=== PATIENT | male | born 1975 | race Caucasian/White ===

== ENCOUNTER 2019-09-28 12:53 | Observation (INO) ==
[2019-09-28 13:29] LABS: Hemoglobin 11.3 gm/dL (13.5-18.0); Mean Cell Volume 81.8 fl (78-100); Mean Corpuscular Hemoglobin 26.4 pg (27-31); Mean Corpuscular Hgb Conc 32.3 g/dl (32-36); Mean Platelet Volume 10.5 fl (8-11.3); Neutrophil % 68.4 % (42-75.0); Platelet Count 229 K/mm3 (150-450); Red Blood Count 4.28 M/mm3 (4.7-6.0); Red Cell Distribution Width 14.3 % (11.5-14.0); White Blood Count 8.8 K/mm3 (4.0-10.5)
[2019-09-28] MEDS ORDERED: FUROSEMIDE 10 MG/ML VIAL IV ONE (13:54)
[2019-09-28 13:55] LABS: Troponin I 0.028 ng/mL (0.00-0.10)
[2019-09-28 13:56] LABS: Albumin * 2.9 gm/dl (3.4-5.0); Anion Gap 13.6 mmol/L (6.8-13.8); BUN/Creatinine Ratio 11.1 (9.0-21.6); Bilirubin, Total 0.4 mg/dL (0.0-1.1); Ca. Corrected For Albumin 9.4 mg/dL (8.4-10.2); Calcium * 8.8 mg/dL (7.9-10.9); Potassium 4.6 mmol/L (3.4-4.6); Total Protein 5.9 gm/dL (6.2-8.2)
--- NOTE | 2019-09-28 14:55 | ERNOTE ---
Dyspnea - Date Date of Service: 09/28/19 - General Presenting Symptoms: shortness of breath, difficulty of breathing Time Seen by Provider: 09/28/19 13:11 Source: patient, family Exam Limitations: no limitations - Immun/Allergies/Home Medications Immunizations: IMMUNIZATION HX Immunizations Up to Date Yes History of Influenza Vaccine No Hx Pneumococcal Vaccination No Allergies/Adverse Reactions: Allergies No Known Allergies Allergy (Verified 09/28/19 13:04) Home Medications: HOME MEDICATIONS Clindamycin HCl [Cleocin HCl] 300 mg PO QID 09/28/19 [Last Taken Unknown] - History of Present Illness Narrative: patient presents to ed with c/o dyspnea for 7-10 days denies fever or cough, past hx of bilateral pneumothorax secondary to mrmsa with chest tube insertion Severity: moderate Initiating event: Reports: none Frequency of episodes: Reports: occassional episodes Modifying Factors - (Improves): Reports: nothing Modifying Factors (Worsens): Reports: nothing Associated Symptoms-Dyspnea: Reports: dizziness, lightheadedness, weakness Review of Systems - Review of Systems Constitutional: Present: See HPI, weakness, fatigue, malaise EYE: Present: no symptoms reported ENT: Present: no symptoms reported Respiratory: Present: See HPI, shortness of breath, orthopnea Cardiology: Present: no symptoms reported Gastrointestinal/Abdominal: Present: no symptoms reported Genitourinary: Present: no symptoms reported Musculoskeletal: Present: no symptoms reported Skin: Present: no symptoms reported Neurological: Present: no symptoms reported Endocrine: Present: no symptoms reported Hematologic/Lymphatic: Present: no symptoms reported Psych: Present: no symptoms reported All Other Systems: All systems neg except as marked Medical History (Last Updated 09/28/19 @ 14:15 by Shazia Chong RN) Diabetes MRSA infection Pneumothorax Surgical History: Surgical History (Last Updated 09/28/19 @ 13:05 by Shazia Chong RN) No pertinent past surgical history Social History: (Last Updated 09/28/19 @ 13:06 by Shazia Chong RN) Tobacco: Smoking Status: Former smoker Smoking Start Date: 02/20/19 Physical Exam - Physical Exam General Appearance: Present: moderate distress, anxious Head Exam: Present: normal inspection, no evidence of injury Eye Exam: Normal inspection: bilateral, PERRL: bilateral, EOMI: bilateral Ears, Nose, Throat: Present: normal ENT inspection, normal pharynx Neck: Present: normal inspection, nontender Respiratory: Present: respiratory distress Cardiovascular/Chest: Present: tachycardia, gallop/S3 Gastrointestinal/Abdominal: Present: normal bowel sounds, nontender, nondistended, soft, no organomegaly Back Exam: Present: normal inspection, normal range of motion, no CVA tenderness, no vertebral tenderness Extremity Exam: Present: normal inspection, non-tender, normal range of motion, no edema Neurological Exam: Present: alert, oriented, normal mood/affect, no motor /sensory deficits Skin Exam: Present: normal color, warm/dry Lymphatic Exam: Present: no adenopathy Progress - Date and Time Seen: Date and Time: 09/28/19 16:48 patient improved, discussed case with dr chou, to admit to observation - Results and Orders Patient's Lab Results:: I have reviewed the patient's lab results. - Vital Signs Patient's Vital Signs:: I have reviewed the patient's vital signs. Vital Signs: Vital Signs 09/28/19 12:58 09/28/19 13:07 09/28/19 13:08 Temperature 36.9 C Pulse Rate 110 H 103 H 103 H Respiratory Rate 42 H 47 H Blood Pressure 144/92 H 136/87 O2 Sat by Pulse Oximetry 89 L 94 09/28/19 14:01 09/28/19 14:02 09/28/19 14:28 Temperature Pulse Rate 100 100 104 H Respiratory Rate 31 H 28 H Blood Pressure 130/91 H 130/91 H 99/76 O2 Sat by Pulse Oximetry 95 96 - EKG EKG #1 EKG: supraventricular tachycardia - X-Ray X-Ray #1 X-Ray: chest Interpretation: Discd w/ radiologist - chf - Progress/Reassessment Chief Complaint: Dyspnea Progress:: Improved - Transfer of Care Expected Disposition: Admit Plan - Plan Plan: to admit Departure Clinical Impression: CHF (congestive heart failure) - Departure Disposition: Short Term Hospital Inpatient Condition: Stable Instructions: Heart Failure, [id number]
--- NOTE | 2019-09-28 18:13 | HP ---
Chief Complaint - Chief Complaint Date of Service: 09/28/19 Time of Service: 16:45 Chief Complaint: dyspnea History of Present Illness: Patient reports one week of shortness of breath. He went to the ED in [place] around a week ago, and he did not feel like treatment was done. His SOB worsened, to the point he felt like he was hyperventilating today, and he came to our ED. The only symptom he reports currently is shortness of breath. Den ies chest pain, cough, lower extremity swelling, abdominal pain, urinary complaints. He reports a history of MRSA pneumonia last March, and he was [facility]. He also states he had renal failure at that time, and he declined dialysis. He reports also having diabetes, but is not on any chronic medications. He was diagnosed with a tooth abscess a week ago, and was started on clindamycin. In the ED, CT showed fluid overload or renal failure. ABGs unable to be obtained. WBC not elevated. Renal function is decreased, with a GFR of 37. He was given 60 mg IV lasix, and has had almost 2 L output. He states his breathing has improved from earlier today. He is currently using 2 L O2 via NC, and he is still tachypneic with respiratory rate around 30. Medical History (Last Reviewed 09/28/19 @ 17:36 by Aime Serra RN) Diabetes MRSA infection Pneumothorax Surgical History: Surgical History (Last Reviewed 09/28/19 @ 17:36 by Aime Serra RN) No pertinent past surgical history Social History: (Last Reviewed 09/28/19 @ 17:36 by Aime Serra RN) Tobacco: Smoking Status: Former smoker Smoking Start Date: 02/20/19 Review Of Systems (GEN) - Review of Systems Generalized/Overall Review: Absent: Fever Respiratory: Present: Shortness of Breath. Absent: Cough, Wheezing Cardiac: Absent: Chest Pain, Edema Abdominal: Absent: Vomiting Genitourinary: Present: No Symptoms Reported Musculoskeletal: Present: No Symptoms Reported Neurological: Present: No Symptoms Reported Immunizations: IMMUNIZATION HX Immunizations Up to Date Yes History of Influenza Vaccine No Hx Pneumococcal Vaccination No Allergies/Adverse Reactions: Allergies Allergy/AdvReac Type Severity Reaction Status Date / Time No Known Allergies Allergy Verified 09/28/19 17:36 Home Medications: HOME MEDICATIONS Clindamycin HCl [Cleocin HCl] 300 mg PO QID 09/28/19 [Last Taken Unknown] Exam - Exam Vital Signs: Vital Signs - Last Taken Temp 36.7 C 09/28/19 17:37 Pulse 98 09/28/19 18:03 Resp 25 H 09/28/19 17:37 BP 142/88 H 09/28/19 17:37 Pulse Ox 98 09/28/19 17:37 Constitutional: Present: Alert, Cooperative, No distress, Looks Older than stated age Respiratory: Present: lungs clear, normal breath sounds, no respiratory distress, other - tachypneic, using 2L O2 via NC Cardiovascular/Chest: Present: regular rate, rhythm - HR 100 Extremity: Absent: lower extremity edema Neurologic: Absent: normal mood/affect Eye contact: Present: cooperative Diagnostic Studies: Abnormal Lab Results 09/28/19 09/28/19 09/28/19 Range/Units 13:22 13:22 13:22 RBC 4.28 L (4.7-6.0) M/mm3 Hgb 11.3 L (13.5-18.0) gm/dL Hct 35.0 L (42.0-52.0) % MCH 26.4 L (27-31) pg RDW 14.3 H (11.5-14.0) % D-Dimer 0.58 H (0.19-0.49) ug/mL Creatinine 2.07 H (0.4-1.4) mg/dL Est GFR (Non-Af Amer) 37 L D (60-130) mL/min Random Glucose 208 H (70-110) mg/dL ALT 15 L (19-67) U/L B-Natriuretic Peptide 4404 H (5-140) pg/mL Total Protein 5.9 L (6.2-8.2) gm/dL Albumin 2.9 L (3.4-5.0) gm/dl Laboratory Results WBC 8.8 K/mm3 (4.0-10.5) 09/28/19 13:22 RBC 4.28 M/mm3 (4.7-6.0) L 09/28/19 13:22 Hgb 11.3 gm/dL (13.5-18.0) L 09/28/19 13:22 Hct 35.0 % (42.0-52.0) L 09/28/19 13:22 MCV 81.8 fl (78-100) 09/28/19 13:22 MCH 26.4 pg (27-31) L 09/28/19 13:22 MCHC 32.3 g/dl (32-36) 09/28/19 13:22 RDW 14.3 % (11.5-14.0) H 09/28/19 13:22 Plt Count 229 K/mm3 (150-450) 09/28/19 13:22 MPV 10.5 fl (8-11.3) 09/28/19 13:22 Immature Gran % (Auto) 0.30 % (0.001-0.429) 09/28/19 13:22 Immature Gran # (Auto) 0.03 K/mm3 (0.000-0.0310) 09/28/19 13:22 Neutrophils % 68.4 % (42-75.0) 09/28/19 13:22 Lymphocytes % 22.5 % (20-51) 09/28/19 13:22 Monocytes % 5.5 % (0.0-9) 09/28/19 13:22 Eosinophils % 2.3 % (0.0-3.0) 09/28/19 13:22 Basophils % 1.0 % (0.0-1.0) 09/28/19 13:22 Nucleated RBC % 0.0 k/mm3 (0-1) 09/28/19 13:22 Neutrophils # 6.0 K/mm3 (1.3-6.0) 09/28/19 13:22 Lymphocytes # 1.99 k/mm3 (1.5-3.5) 09/28/19 13:22 Monocytes # 0.5 k/mm3 (0.0-1.0) 09/28/19 13:22 Eosinophils # 0.2 k/mm3 (0.0-0.7) 09/28/19 13:22 Absolute Basophils 0.1 k/mm3 (0.0-0.1) 09/28/19 13:22 D-Dimer 0.58 ug/mL (0.19-0.49) H 09/28/19 13:22 Sodium 139 mmol/L (132-142) 09/28/19 13:22 Plasma Sodium 141 mmol/L (130-142) 09/28/19 13:22 Potassium 4.6 mmol/L (3.4-4.6) 09/28/19 13:22 Chloride 106 mmol/L (97-106) 09/28/19 13:22 Carbon Dioxide 24.0 mmol/L (24-32.6) 09/28/19 13:22 Anion Gap 13.6 mmol/L (6.8-13.8) 09/28/19 13:22 BUN 23 mg/dL (6-23) 09/28/19 13:22 Creatinine 2.07 mg/dL (0.4-1.4) H 09/28/19 13:22 Est GFR (Non-Af Amer) 37 mL/min (60-130) L D 09/28/19 13:22 BUN/Creatinine Ratio 11.1 (9.0-21.6) 09/28/19 13:22 Random Glucose 208 mg/dL (70-110) H 09/28/19 13:22 Calcium 8.8 mg/dL (7.9-10.9) 09/28/19 13:22 Calcium Adj for Albumin 9.4 mg/dL (8.4-10.2) 09/28/19 13:22 Total Bilirubin 0.4 mg/dL (0.0-1.1) 09/28/19 13:22 AST 13 U/L (0-48) 09/28/19 13:22 ALT 15 U/L (19-67) L 09/28/19 13:22 Alkaline Phosphatase 83 U/L (50-170) 09/28/19 13:22 Troponin I 0.028 ng/mL (0.00-0.10) 09/28/19 13:22 B-Natriuretic Peptide 4404 pg/mL (5-140) H 09/28/19 13:22 Total Protein 5.9 gm/dL (6.2-8.2) L 09/28/19 13:22 Albumin 2.9 gm/dl (3.4-5.0) L 09/28/19 13:22 Influenza Type A Ag Negative (NEGATIVE) 09/28/19 13:49 Influenza Type B Ag Negative (NEGATIVE) 09/28/19 13:49 Assessment/Plan - Assessment/Plan (1) CHF (congestive heart failure) Assessment: Differential diagnosis includes heart failure, fluid overload, pneumonia, COPD exacerbation, anemia, pneumothorax. CT and CXR were positive for fluid overload/heart failure. BNP is elevated at 4404, but this is not completely reliable given his poor renal function. He is afebrile, WBC not elevated, no cough makes PNA less likely. He does not carry a diagnosis of COPD. He is only mildly anemic, with Hgb of 11.3, which is not likely the severity to cause SOB. No pneumothorax on imaging, however he reports a history of pneumothorax in the past. We do not have access to his previous records, but if he had MRSA pneumonia, that is a severe life threatening infection, and he may have chronic sequela. He does not regularly see a PCP or any specialists. He has had very serious illness in the last 6 months, and follow up with providers was surely recommended. He was given 60 mg IV lasix in the ED, and he reports his breathing improved. Per the ED doc, he had crackles on lung exam, which have cleared for my exam. With his poor renal function, will not yet give additional lasix, but will see if he has sufficient response to that one dose. Wean oxygen as tolerated. I strongly suspect reduced EF. Will order an echo to be done during this hospitalization, as I am not convinced he would come to a scheduled outpatient exam. He reports not currently having a PCP. Unfortunately, he declined signing a consent to obtain prior records from [place], so I am unable to determine if today's findings are significantly different than his baseline. Problem: Acute (2) Shortness of breath Assessment: D Dimer was elevated at 0.58, and subsequent CTA of the chest was negative for PE. Troponin not significantly elevated at 0.02, and no acute findings on his EKG. See above for further details. Problem: Acute (3) Chronic renal failure, stage 3 (moderate) Assessment: He reports needing dialysis in the past, but declined. Creatinine today is 2.03, GFR 37. We do not have access to previous records, and he declined signing consent to obtain records from [place]. Will recheck in the morning. Problem: Chronic (4) Type II diabetes mellitus Assessment: He reports having diabetes, but does not take medication. Admission blood sugar was 208. He has declined a second attempt at ABG, so he may also decline finger sticks for glucose checks, but will attempt to see where his glucose ranges throughout the day. A1C pending for the morning, since he does not see a PCP. Problem: Acute (5) Tooth abscess Assessment: will continue his home clindamycin. Problem: Acute
[2019-09-28] MEDS ORDERED: ACETAMINOPHEN 325 MG TABLET PO PRN (19:32)
[2019-09-28] MEDS: CLINDAMYCIN HCL 150 MG CAPSULE PO SCH (20:50)
[2019-09-28] MEDS: INSULIN LISPRO 100 UNITS/ML VIAL SC SCH (20:56)
[2019-09-28] MEDS ORDERED: LIDOCAINE HCL 100 APPL SOLUTION MM PRN (21:30)
[2019-09-28] MEDS ORDERED: LIDOCAINE HCL 20 ML UDC ONE (21:53)
[2019-09-29 06:38] LABS: Hematocrit 36.5 % (42.0-52.0); Hemoglobin 11.8 gm/dL (13.5-18.0); Mean Cell Volume 81.7 fl (78-100); Mean Corpuscular Hemoglobin 26.4 pg (27-31); Mean Corpuscular Hgb Conc 32.3 g/dl (32-36); Mean Platelet Volume 10.6 fl (8-11.3); Neutrophil # 5.3 K/mm3 (1.3-6.0); Neutrophil % 59.7 % (42-75.0); Platelet Count 242 K/mm3 (150-450); Red Blood Count 4.47 M/mm3 (4.7-6.0); Red Cell Distribution Width 14.1 % (11.5-14.0); White Blood Count 8.8 K/mm3 (4.0-10.5)
[2019-09-29 06:52] LABS: Albumin * 2.9 gm/dl (3.4-5.0); Anion Gap 11.5 mmol/L (6.8-13.8); BUN/Creatinine Ratio 10.9 (9.0-21.6); Bilirubin, Total 0.5 mg/dL (0.0-1.1); Calcium * 9.4 mg/dL (7.9-10.9); Carbon Dioxide 25.2 mmol/L (24-32.6); Potassium 4.7 mmol/L (3.4-4.6); Total Protein 6.8 gm/dL (6.2-8.2)
[2019-09-29 07:02] LABS: Hemoglobin A1C 7.6 % (4.00-6.0)
[2019-09-29] MEDS: CLINDAMYCIN HCL 150 MG CAPSULE PO SCH ×2 (08:13→12:15)
[2019-09-29] MEDS: INSULIN LISPRO 100 UNITS/ML VIAL SC SCH ×2 (08:14→12:03)
--- NOTE | 2019-09-29 14:47 | DS ---
(1) CHF (congestive heart failure) Problem: Acute (2) Shortness of breath Problem: Resolved (3) Chronic renal failure, stage 3 (moderate) Problem: Chronic (4) Type II diabetes mellitus Problem: Chronic (5) Tooth abscess Problem: Acute Date of Discharge:: 09/29/19 Hospital Course: Patient reported one week of shortness of breath. He went to the ED in [place] around a week ago, and he did not feel like treatment was done. His SOB worsened, to the point he felt like he was hyperventilating, and he came to our ED. The only symptom he reported currently was shortness of breath. Denied chest pain, cough, lower extremity swelling, abdominal pain, urinary complaints. He reported a history of MRSA pneumonia last March, and he was hospitalized at the [facility]. He also states he had renal failure at that time, and he declined dialysis. He reports also having diabetes, but is not on any chronic medications. He was diagnosed with a tooth abscess a week ago, and was started on clindamycin. In the ED, CT showed fluid overload or renal failure. ABGs unable to be obtained. WBC not elevated. Renal function is decreased, with a GFR of 37. He was given 60 mg IV lasix, and has had almost 2 L output. He states his breathing has improved from earlier prior to admission. He is currently using 2 L O2 via NC, and he is still tachypneic with respiratory rate around 30. During his stay, he was weaned off oxygen, and his SOB resolved. He felt comfortable going home on the day of DC. His glucose was high, and he stated a history of diabetes. A1C here was 7.6. His GFR was 37, so he is not a candidate for metformin. Since he seemed to be in an exacerbation of heart failure, echocardiogram was done. This has not yet resulted at the time of DC. He has not been seeing any physicians regularly. With his suspected heart failure, reduced renal function, he is serious comorbidities, and recommend he establish with a PCP and security operations center analyst. Procedures Performed: none Results and Findings: Pending Mircobiology Results 09/28/19 13:59 Blood Blood Culture - Preliminary NO GROWTH 24 HOURS 09/28/19 13:22 Blood Blood Culture - Preliminary NO GROWTH 24 HOURS Lab Pending Results 09/28/19 13:22: WBC 8.8, RBC 4.28 L, Hgb 11.3 L, Hct 35.0 L, MCV 81.8, MCH 26.4 L, MCHC 32.3, RDW 14.3 H, Plt Count 229, MPV 10.5, Immature Gran % (Auto) 0.30, Immature Gran # (Auto) 0.03, Neutrophils % 68.4, Lymphocytes % 22.5, Monocytes % 5.5, Eosinophils % 2.3, Basophils % 1.0, Nucleated RBC % 0.0, Neutrophils # 6.0, Lymphocytes # 1.99, Monocytes # 0.5, Eosinophils # 0.2, Absolute Basophils 0.1 09/28/19 13:22: Sodium 139, Plasma Sodium 141, Potassium 4.6, Chloride 106, Carbon Dioxide 24.0, Anion Gap 13.6, BUN 23, Creatinine 2.07 H, Est GFR (Non-Af Amer) 37 L D, BUN/Creatinine Ratio 11.1, Random Glucose 208 H, Calcium 8.8, Calcium Adj for Albumin 9.4, Total Bilirubin 0.4, AST 13, ALT 15 L, Alkaline Phosphatase 83, Troponin I 0.028, B-Natriuretic Peptide 4404 H, Total Protein 5.9 L, Albumin 2.9 L 09/28/19 13:22: D-Dimer 0.58 H 09/28/19 13:49: Influenza Type A Ag Negative, Influenza Type B Ag Negative 09/29/19 06:20: WBC 8.8, RBC 4.47 L, Hgb 11.8 L, Hct 36.5 L, MCV 81.7, MCH 26.4 L, MCHC 32.3, RDW 14.1 H, Plt Count 242, MPV 10.6, Immature Gran % (Auto) 0.20, Immature Gran # (Auto) 0.02, Neutrophils % 59.7, Lymphocytes % 29.3, Monocytes % 7.2, Eosinophils % 2.6, Basophils % 1.0, Nucleated RBC % 0.0, Neutrophils # 5.3, Lymphocytes # 2.58, Monocytes # 0.6, Eosinophils # 0.2, Absolute Basophils 0.1 09/29/19 06:20: Sodium 137, Plasma Sodium 138, Potassium 4.7 H, Chloride 105, Carbon Dioxide 25.2, Anion Gap 11.5, BUN 23, Creatinine 2.11 H, Est GFR (Non-Af Amer) 36 L, BUN/Creatinine Ratio 10.9, Random Glucose 145 H D, Calcium 9.4, Calcium Adj for Albumin 10.0, Total Bilirubin 0.5, AST 22, ALT 15 L, Alkaline Phosphatase 86, Total Protein 6.8, Albumin 2.9 L 09/29/19 06:20: Mean Blood Glucose 167, Hemoglobin A1c 7.6 H Discharge Location: Home Disposition: Home self-care Condition: Fair Discharge Activity: Activity as tolerated Discharge Diet: General/regular food Problem Oriented Discharge Instructions to Patient/Family: Heart Failure, [id number] Additional Patient Instructions (free text): Please schedule with cardiology, and with Dr Arredondo or an international broadcast music librarian within 2 weeks for hospital follow up. Complete Home Medications List: Complete Home Medication List: Clindamycin HCl [Cleocin HCl] 300 mg PO QID 09/28/19
[2019-09-29 14:54] VITALS: BP 121/80
--- NOTE | 2019-10-02 09:30 | ECHO ---
This report is available in the EMR
== END 2019-09-29 15:45 | disposition home or self-care (01) ==
LOC: MS 12:53 → ER 12:53 → MS 17:37
PROVIDERS: ADMIT Family Medicine; ATTEND Family Medicine
CPT/HCPCS: 36415; 71020; 71046; 71275; 80053; 83036; 83519; 83880; 84484; 85025; 85379; 87040; 87081; 87400; 87449; 93005; 93306; 94660; 94760; 96374; 99285; G0378; Q9967